=== PATIENT | male | born 1985 | race Caucasian/White ===

== ENCOUNTER 2025-08-03 13:03 | Emergency (ER) | payer OTHER ==
[2025-08-03] MEDS ORDERED: Sodium Chloride 0.9% 10 ML Syringe FLUSH PRN (14:55)
[2025-08-03] MEDS ORDERED: Naloxone 0.4 MG/ML SDV IVPUSH PRN (15:16)
[2025-08-03] MEDS: Sodium Chloride 0.9% 10 ML Syringe FLUSH ONE (15:41)
[2025-08-03] MEDS: Iopamidol 755 Mg/ML 100 ML Bottle IVPUSH ONE (15:41)
[2025-08-03 15:50] LABS: BASOPHILS ABSOLUTE AUTO 0.0 K/mm3 (0.0-0.2); BASOPHILS PERCENT AUTO 0.3 % (0.0-1.0); EOSINOPHILS ABSOLUTE AUTO 0.0 K/mm3 (0.0-0.4); EOSINOPHILS PERCENT AUTO 0.2 % (0.0-6.0); IMMATURE GRAN ABSOLUTE AUTO 0.01 K/mm3 (0.00-0.05); IMMATURE GRAN PERCENT AUTO 0.2 % (0.0-0.4); LYMPHOCYTES ABSOLUTE AUTO 2.2 K/mm3 (1.0-4.8); LYMPHOCYTES PERCENT AUTO 37.2 % (24.0-44.0); MEAN PLATELET VOLUME 9.1 fl (9.4-12.4); MONOCYTES ABSOLUTE AUTO 0.5 K/mm3 (0.0-0.8); MONOCYTES PERCENT AUTO 8.4 % (0.0-8.0); NEUTROPHILS ABSOLUTE AUTO 3.2 K/mm3 (1.8-7.7); NEUTROPHILS PERCENT AUTO 53.7 % (41.0-71.0); NRBC ABSOLUTE 0.00 (0.00-0.02); NRBC PERCENT 0.0 % (0.0-0.2); PLATELET COUNT,PLT 216 K/mm3 (150-400); RED BLOOD CELL COUNT 4.43 M/mm3 (4.52-5.90); WHITE BLOOD CELL COUNT,WBC 5.92 K/mm3 (3.9-11.3)
[2025-08-03] MEDS: Ondansetron 4 MG/2 ML SDV IVPUSH ONE (15:56)
[2025-08-03 16:14] LABS: LACTIC ACID 1.3 mmol/L (0.4-2.0)
[2025-08-03 16:17] LABS: A/G RATIO 1.2 (1-2); ALANINE AMINOTRANSFERASE,ALT 45 U/L (16-63); ASPARTATE AMNIOTRANSFERASE,AST 19 U/L (15-37); BILIRUBIN TOTAL 0.9 mg/dL (0.2-1.0); BLOOD UREA NITROGEN,BUN 14 mg/dL (7-18); CARBON DIOXIDE,CO2 28 mEq/L (21-32); CHLORIDE,CL 103 mEq/L (98-107); CREATININE 0.8 mg/dL (0.7-1.3); EST CRCL DRUG DOSING (CG) 128.11 mL/min; ESTIMATED GFR 113 mL/min (>60); GLUCOSE RANDOM 92 mg/dL (70-99); POTASSIUM,K 4.0 mEq/L (3.5-5.1); PROTEIN TOTAL,TP 7.3 g/dl (6.4-8.2); SODIUM,NA 140 mEq/L (136-145); TSH 0.899 uIU/mL (0.358-3.74)
[2025-08-03] MEDS: Ketorolac 30 MG/ML SDV IVPUSH ONE (16:21)
== END 2025-08-03 17:30 | disposition home or self-care (01) ==
LOC: JD.ED 13:03
DX: R51.9 Headache, unspecified (principal)
CPT/HCPCS: 36415; 70450; 70496; 80053; 83605; 83735; 84443; 85025; 86140; 96374; 96375; 99284; J1885; J2405; J7030; Q9967; 99282